=== PATIENT | male | born 1985 | race Caucasian/White ===

== ENCOUNTER 2016-08-27 19:12 | Emergency (ER) | payer MEDICAID ==
[~2016-08-27] VITALS: Ht 182.9 cm; Wt 81.6 kg
[~2016-08-27 19:12] MED LIST: CEPH-37 PO
[2016-08-27 19:40] VITALS: BP 122/75
[2016-08-27 20:16] LABS: Basophils # (auto) 0 uL; Basophils % (auto) 0.5 % (0.0-2.0); Eosinophils # (auto) 0.3 uL; Eosinophils % (auto) 3.4 % (0.0-7.0); Hematocrit 45.2 % (41.0-53.0); Hemoglobin 14.5 g/dL (13.5-17.5); Lymphocytes # (auto) 2.3 uL; Lymphocytes % (auto) 30.2 % (10.0-50.0); Mean Corpuscular Hemoglobin 28.9 pg (28.0-32.0); Mean Corpuscular Volume 90.2 fL (80.0-100.0); Mean Platelet Volume 7.6 fL (7.4-10.4); Monocytes # (auto) 0.6 uL; Monocytes % (auto) 7.4 % (0.0-12.0); Neutrophils # (auto) 4.5 uL; Neutrophils % (auto) 58.5 % (37.0-80.0); Platelet Count (auto) 321 10^3/uL (140-450); Red Cell Distribution Width 13.7 % (11.6-16.0); White Blood Cell 7.7 10^3/uL (4.4-10.8)
[2016-08-27 20:50] LABS: Potassium 3.9 mmol/L (3.5-5.1)
[2016-08-27 21:02] LABS: Albumin 4.2 g/dL (3.4-5.0); BUN/Creatinine Ratio 19.4; Bilirubin, Total 0.3 mg/dL (0.2-1.0); Total Protein 7.7 g/dL (6.4-8.2)
== END 2016-08-28 00:29 | disposition left against medical advice (07) ==
LOC: ER 19:23
DX: R21 Rash and other nonspecific skin eruption (principal); Z53.21 Procedure and treatment not carried out due to patient leaving prior to being seen by health care provider
CPT/HCPCS: 36415; 80053; 85025

== ENCOUNTER 2016-11-02 03:12 | Emergency (ER) | payer MEDICAID ==
[~2016-11-02] VITALS: Ht 182.9 cm; Wt 71.2 kg
[2016-11-02 03:19] VITALS: BP 115/89
== END 2016-11-02 03:50 | disposition home or self-care (01) ==
LOC: ER 03:12
DX: L03.221 Cellulitis of neck (principal); F17.210 Nicotine dependence, cigarettes, uncomplicated; F12.10 Cannabis abuse, uncomplicated; F15.10 Other stimulant abuse, uncomplicated; Z59.0 Homelessness

== ENCOUNTER 2017-04-19 23:56 | Emergency (ER) | payer MEDICAID ==
[~2017-04-19] VITALS: Ht 170.2 cm; Wt 74.8 kg
[2017-04-20 00:02] VITALS: BP 116/73
== END 2017-04-20 01:00 | disposition left against medical advice (07) ==
LOC: ER 23:56 → EDUNIT# 23:56 → EDBD 23:56 → ER 04-20 01:00
DX: F19.10 Other psychoactive substance abuse, uncomplicated (principal); Z53.21 Procedure and treatment not carried out due to patient leaving prior to being seen by health care provider
CPT/HCPCS: 93005

== ENCOUNTER 2019-08-16 10:01 | Emergency (ER) | payer MEDICAID ==
[~2019-08-16] VITALS: Ht 182.9 cm; Wt 83.9 kg
[2019-08-16 10:29] VITALS: BP 129/70
== END 2019-08-16 12:45 | disposition home or self-care (01) ==
LOC: ER 10:01
DX: J02.9 Acute pharyngitis, unspecified (principal); F17.210 Nicotine dependence, cigarettes, uncomplicated

== ENCOUNTER 2021-03-30 01:18 | Emergency (ER) | payer BC, MEDICAID, OTHER ==
[~2021-03-30] VITALS: Ht 180.3 cm; Wt 77.1 kg
[2021-03-30] MEDS ORDERED: LORazepam 0.5 MG TAB PO ONE (04:00)
[2021-03-30 09:18] LABS: Basophils # (auto) 0 10 ^3/uL (0-0.2); Basophils % (auto) 0.5 % (0.0-2.0); Eosinophils # (auto) 0.3 10 ^3/uL (0-0.8); Eosinophils % (auto) 3.5 % (0.0-7.0); Hematocrit 46.4 % (41.0-53.0); Lymphocytes # (auto) 1.8 10 ^3/uL (0.4-5.4); Lymphocytes % (auto) 23.2 % (10.0-50.0); Mean Corpuscular Hgb Conc. 34.5 g/dL (32.0-36.0); Mean Corpuscular Volume 89.8 fL (80.0-100.0); Monocytes # (auto) 0.5 10 ^3/uL (0-1.3); Monocytes % (auto) 6.7 % (0.0-12.0); Neutrophils # (auto) 5.1 10 ^3/uL (1.6-8.6); Neutrophils % (auto) 66.1 % (37.0-80.0); Nucleated Red Blood Cells % 0.3 %; Red Blood Cells 5.17 10^6/uL (4.5-5.90); Red Cell Distribution Width 13.8 % (11.8-14.3); White Blood Cell 7.7 10^3/uL (4.4-10.8)
[2021-03-30 09:23] LABS: Albumin 3.7 g/dL (3.4-5.0); BUN/Creatinine Ratio 15.9; Calcium 9.1 mg/dL (8.5-10.1); Potassium 3.5 mmol/L (3.5-5.1)
[2021-03-30 09:26] LABS: Bilirubin, Total 0.6 mg/dL (0.2-1.0); Total Protein 7.2 g/dL (6.4-8.2)
[2021-03-30 09:44] LABS: Acetaminophen < 2.0 ug/mL (10-30); Salicylate < 1.7 mg/dL (2.8-20.0)
[2021-03-31 09:25] VITALS: BP 120/70
== END 2021-03-31 11:08 | disposition home or self-care (01) ==
LOC: EDBD 01:18 → ER 01:21
DX: F32.9 Major depressive disorder, single episode, unspecified (principal); F41.9 Anxiety disorder, unspecified; F17.210 Nicotine dependence, cigarettes, uncomplicated; F12.10 Cannabis abuse, uncomplicated; F15.10 Other stimulant abuse, uncomplicated; Z59.0 Homelessness
CPT/HCPCS: 36415; 80053; 80320; 80329; 85025

== ENCOUNTER 2021-10-15 00:01 | Emergency (ER) | payer SELFPAY ==
[~2021-10-15] VITALS: Ht 182.9 cm; Wt 79.4 kg
[2021-10-15 02:04] VITALS: BP 116/74
== END 2021-10-15 02:13 | disposition home or self-care (01) ==
LOC: ER 00:01
DX: S06.0X0A Concussion without loss of consciousness, initial encounter (principal); F17.210 Nicotine dependence, cigarettes, uncomplicated; F12.10 Cannabis abuse, uncomplicated; F15.10 Other stimulant abuse, uncomplicated; Y04.8XXA Assault by other bodily force, initial encounter; Y93.89 Activity, other specified; Y92.89 Other specified places as the place of occurrence of the external cause; Y99.8 Other external cause status
CPT/HCPCS: 70450

== ENCOUNTER 2024-05-27 01:01 | Emergency (ER) | payer BC, MEDICAID ==
[~2024-05-27] VITALS: Ht 182.9 cm; Wt 81.5 kg
[2024-05-27 02:19] VITALS: BP 138/81; PULSE 106; RESP 16; TEMP 98.2; O2SAT 96
--- NOTE | 2024-05-27 02:50 | ED.PDOC ---
History of Present Illness(SKN HPI Comments 38 year old male presents to ER with complaints of abscess x 1 week. Patient states he's had an abscess surrounding facial hair of right lower jaw x 1 week with associated yellow purulent drainage to this region x 1 day. He reports 9/10 pain localized to abscess with radiation towards right ear. Denies use of medications for current symptoms. Patient presents to ER, ambulatory on arrival, alert and oriented x4, with steady gait, in no distress. Denies fever, body aches, chills, n/v, headache, trauma, neck pain, shortness of breath or any further symptoms/complaints Chief Complaint: Abscess Time Seen by MD: 01:23 Primary Care Provider: NONE History of Present Illness: Nurses Notes, Medications, Allergies Allergies: Coded Allergies: NO KNOWN ALLERGIES (Unverified , 05/06/16) Home Meds Active Scripts Ibuprofen (Ibuprofen) 800 Mg Tab, 1 TAB PO TID PRN, #30 TAB 0 Refills Prov:TESSIE OLIVER 05/27/24 Clindamycin Hcl (Clindamycin Hcl) 300 Mg Cap, 300 MG PO QID for 7 Days, #28 CAP 0 Refills Prov:TESSIE OLIVER 05/27/24 Cephalexin (Keflex) 500 Mg Cap, 1 CAP PO TID, #30 CAP Prov:LUCI PATTEN MD 05/28/16 Information Source: Patient Mode of Arrival: Ambulatory Tetanus: UTD Past Medical History PAST MEDICAL HISTORY: Denies Surgical History: Hernia Repair Family History Family History: Unknown Social History Smoker: Cigarettes, Greater Than 1 Pack/Day Alcohol: Occasionally Drugs: Marijuana, Methamphetamine Lives In: Home Constitutional: denies: chills, diaphoresis, fatigue, fever, malaise, sweats, weakness, others EENTM: reports: others (As stated in HPI) Respiratory: denies: cough, hemoptysis, orthopnea, SOB at rest, shortness of breath, SOB with excertion, stridor, wheezing, others Cardiovascular: denies: chest pain, dizzy spells, diaphoresis, Dyspnea on exertion, edema, irregular heart beat, left arm pain, lightheadedness, palpitations, PND, syncope, others Gastrointestinal: denies: abdomen distended, abdominal pain, blood streaked bowels, constipated, diarrhea, dysphagia, difficulty swallowing, hematemesis, melena, nausea, poor appetite, poor fluid intake, rectal bleeding, rectal pain, vomiting, others Genitourinary: denies: burning, dysuria, flank pain, frequency, hematuria, incontinence, penile discharge, penile sore, pain, testicle pain, testicle swelling, urgency, others Neurological: denies: dizziness, fainting, headache, left sided numbness, left sided weakness, numbness, paresthesia, pre-existing deficit, right sided numbness, right sided weakness, seizure, speech problems, tingling, tremors, weakness, others Musculoskeletal: denies: back pain, gout, joint pain, joint swelling, muscle pain, muscle stiffness, neck pain, others Integumetry: reports: others (As in HPI) Allergic/Immunocompromised: denies: Difficulty Healing, Frequent Infections, Hives, Itching, others Hematologic/Lymphatic: denies: anemia, blood clots, easy bleeding, easy bruising, swollen glands, others Endocrine: denies: excessive hunger, excessive sweating, excessive thirst, excessive urination, flushing, intolerance to cold, intolerance to heat, unexplained weight gain, unexplained weight loss, others Psychiatric: denies: anxiety, bipolar disorder, depression, hopeless, panic disorder, schizophrenia, sleepless, suicidal, others Physical Exam General Appearance: No Apparent Distress HEENT: Normal ENT Inspection, PERRL/EOMI, Pharynx Normal, TMs Normal Neck: Full Range of Motion, Other (Right cervical lymphadenopathy) Respiratory: Chest Non-Tender, Lungs Clear, No Accessory Muscle Use, No Respiratory Distress, Normal Breath Sounds Cardiovascular: No Murmur, No Gallop, Regular Rate/Rhythm Breast Exam: Deferred Gastrointestinal: NOT DONE Genitalia: Deferred Pelvic: Deferred Rectal: Deferred Extremities: Normal capillary refill, Normal range of motion Neurologic: Alert, med peds II-XII nml as Tested, No Motor Deficits, Normal Affect, Normal Mood, No Sensory Deficits Cerebellar Function: Normal Reflexes: Normal Skin: Dry, Warm Lymphatic: Other (Right cervical lympadenopathy) Was a procedure done? Was a procedure done?: Yes Sedation Sedation?: No Incision and Drainage Incision and Drainage: Abscess Location Right lower mandible Anesthetic: Lidocaine (1% without epi) Preparation: Betadine Incision and Wound: Pus, Blood, Amount (Area surrounding abscess was shaved using a razor. 10 blade scalpel was used to make the incision and hemostat was used to break up the loculations of abscess. Large amount of purulent driange removed. Patient tolerated procedure well without any complication), Irrigated, Packed Informed consent obtained: Yes Risks/benefits/alt described: Yes Images 1 - 4 cm x 3 cm abscess surrounding facial hair to right lower mandible. No drainage/red streaking noted Differential Diagnosis (INTG) Differential Diagnosis: Abrasion Differential Diagnosis: Puncture Wound, Retained Foreign Body, Other (mass) X-Ray, Labs, Meds, VS Vital Signs Date Time Temp Pulse Resp B/P (MAP) Pulse Ox O2 Delivery O2 Flow Rate FiO2 05/27/24 02:19 98.2 106 16 138/81 (100) 96 98.2 05/27/24 02:19 106 16 96 Room Air 05/27/24 01:15 98.2 106 16 138/81 (100) 96 Current Medications Medications (Trade) Dose Ordered Sig/Phong Route Start Time Stop Time Status Last Admin Clindamycin Phosphate 50 ml @ 50 mls/hr ONCE ONCE IV 05/27/24 02:45 05/27/24 03:44 DC 05/27/24 04:55 Ceftriaxone Sodium 50 ml @ 100 mls/hr ONCE ONCE IV 05/27/24 02:45 05/27/24 03:14 DC 05/27/24 04:40 Hep-Lock IV ordered Clindamycin 900 mg IV ordered Rocephin 1 g IV ordered Toradol 30 mg IV ordered Wound care was discussed and advised Advised to f/u in 2 days for wound check removal of packing Patient neurovascularly intact, in no distress and reported improvement in symptoms prior to discharge Methamphetamine and cannabis cessation discussed and advised Advised to follow up with PCP in 1-2 days Patient verbalized understanding and agreeable with current plan of care Advised to return to ER immediately if symptoms worsen Time of 1ST Reevaluation: 02:42 Reevaluation 1ST: N/A Patient Education/Counseling: Diagnosis, Treatment, Prognosis, Need For Follow Up Family Education/Counseling: No Family Present Departure 1 Departure Time of Disposition: 04:22 Impression: Primary Impression: Abscess of mandible Disposition: 01 HOME / SELF CARE / HOMELESS Condition: Stable e-Prescriptions Ibuprofen (Ibuprofen) 800 Mg Tab 1 TAB PO TID PRN, #30 TAB 0 Refills Prov: TESSIE OLIVER 05/27/24 Clindamycin Hcl (Clindamycin Hcl) 300 Mg Cap 300 MG PO QID for 7 Days, #28 CAP 0 Refills Prov: TESSIE OLIVER 05/27/24 Discharged With: Self Critical Care Note Critical Care Time?: No Stability Stability form required: No Heart Score Heart Score: Heart Score Response (Comments) Value History N/A 0 EKG N/A 0 Age N/A 0 Risk Factors N/A 0 Troponin N/A 0 Total 0 TESSIE OLIVER May 27, 2024 02:50
[2024-05-27] MEDS ORDERED: IBUP-1456 PO (04:24)
[2024-05-27] MEDS ORDERED: CLIN1CAP70 PO (04:24)
[2024-05-27] MEDS: KETOROLAC TROMETH 30 MG/ML 1ML VIAL IV ONE (04:30)
[2024-05-27] MEDS: cefTRIAXone 1GM/50ML D5W 50 ML IV ONE (04:40)
[2024-05-27] MEDS: CLINDAMYCIN 900MG IV 50 ML IV ONE (04:55)
== END 2024-05-27 05:40 | disposition home or self-care (01) ==
LOC: ER 01:01
DX: H60.01 Abscess of right external ear (principal); M27.2 Inflammatory conditions of jaws; F17.210 Nicotine dependence, cigarettes, uncomplicated; Z79.899 Other long term (current) drug therapy; Z98.890 Other specified postprocedural states
CPT/HCPCS: 10061; 96365; 96368; 99284; J0696; J3490; J1885

== ENCOUNTER 2024-05-29 19:18 | Emergency (ER) | payer SELFPAY ==
[~2024-05-29 19:18] MED LIST changes: +CLIN1CAP70 PO; +IBUP-1456 PO
== END 2024-05-29 20:04 | disposition left against medical advice (07) ==
LOC: ER 19:18
DX: T14.8XXA Other injury of unspecified body region, initial encounter (principal); Z53.21 Procedure and treatment not carried out due to patient leaving prior to being seen by health care provider; X58.XXXA Exposure to other specified factors, initial encounter; Y93.89 Activity, other specified; Y92.89 Other specified places as the place of occurrence of the external cause; Y99.8 Other external cause status

== ENCOUNTER 2024-05-30 02:37 | Emergency (ER) | payer MEDICAID ==
[~2024-05-30] VITALS: Ht 182.9 cm; Wt 83.0 kg
[2024-05-30 02:55] VITALS: BP 133/86; PULSE 98; RESP 18; TEMP 98.7; O2SAT 98
--- NOTE | 2024-05-30 02:58 | ED.PDOC ---
History of Present Illness HPI Comments 38-year-old male who came to ER for wound check. Patient does have history of substance abuse. Patient was seen here 3 days ago abscess of the mandible, and underwent incision and drainage, tolerated procedure well. Patient is unable to fill up his prescription start antibiotics due to financial constraints. Patient coming in for wound check. Chief Complaint: Wound Check Time Seen by MD: 02:58 Primary Care Provider: NONE Reviewed Notes: Nurses Notes Allergies: Coded Allergies: NO KNOWN ALLERGIES (Unverified , 05/06/16) Home Meds Active Scripts Ibuprofen (Ibuprofen) 800 Mg Tab, 1 TAB PO TID PRN, #30 TAB 0 Refills Prov:TESSIE OLIVER 05/27/24 Clindamycin Hcl (Clindamycin Hcl) 300 Mg Cap, 300 MG PO QID for 7 Days, #28 CAP 0 Refills Prov:TESSIE OLIVER 05/27/24 Cephalexin (Keflex) 500 Mg Cap, 1 CAP PO TID, #30 CAP Prov:LUCI PATTEN MD 05/28/16 Information Source: Patient Mode of Arrival: Ambulatory Severity: Moderate Timing: Days Duration: Since onset Past Medical History PAST MEDICAL HISTORY: Denies Surgical History: Hernia Repair Family History Family History: Reviewed,noncontributory to illness Social History Smoker: Cigarettes, Greater Than 1 Pack/Day Alcohol: Occasionally Drugs: Marijuana, Methamphetamine Lives In: Homeless Constitutional: denies: chills, diaphoresis, fatigue, fever, malaise, sweats, weakness, others EENTM: denies: blurred vision, double vision, ear bleeding, ear discharge, ear drainage, ear pain, ear ringing, eye pain, eye redness, hearing loss, mouth pain, mouth swelling, nasal discharge, nose bleeding, nose congestion, nose pain, photophobia, tearing, throat pain, throat swelling, voice changes, others Respiratory: denies: cough, hemoptysis, orthopnea, SOB at rest, shortness of breath, SOB with excertion, stridor, wheezing, others Cardiovascular: denies: chest pain, dizzy spells, diaphoresis, Dyspnea on exertion, edema, irregular heart beat, left arm pain, lightheadedness, palpitations, PND, syncope, others Gastrointestinal: denies: abdomen distended, abdominal pain, blood streaked bowels, constipated, diarrhea, dysphagia, difficulty swallowing, hematemesis, melena, nausea, poor appetite, poor fluid intake, rectal bleeding, rectal pain, vomiting, others Genitourinary: denies: burning, dysuria, flank pain, frequency, hematuria, incontinence, penile discharge, penile sore, pain, testicle pain, testicle sw elling, urgency, others Neurological: denies: dizziness, fainting, headache, left sided numbness, left sided weakness, numbness, paresthesia, pre-existing deficit, right sided numbness, right sided weakness, seizure, speech problems, tingling, tremors, weakness, others Musculoskeletal: denies: back pain, gout, joint pain, joint swelling, muscle pain, muscle stiffness, neck pain, others Integumetry: reports: wounds (Abscess of the mandible); denies: bruises, change in color, change in hair/nails, dryness, laceration, lesions, lumps, rash, others Allergic/Immunocompromised: denies: Difficulty Healing, Frequent Infections, Hives, Itching, others Hematologic/Lymphatic: denies: anemia, blood clots, easy bleeding, easy bruising, swollen glands, others Endocrine: denies: excessive hunger, excessive sweating, excessive thirst, excessive urination, flushing, intolerance to cold, intolerance to heat, unexplained weight gain, unexplained weight loss, others Psychiatric: denies: anxiety, bipolar disorder, depression, hopeless, panic disorder, schizophrenia, sleepless, suicidal, others Physical Exam General Appearance: No Apparent Distress, Normal HEENT: Normal ENT Inspection, Pharynx Normal, TMs Normal Neck: Full Range of Motion, Non-Tender, Normal, Normal Inspection Respiratory: Chest Non-Tender, Lungs Clear, No Accessory Muscle Use, No Respiratory Distress, Normal Breath Sounds Cardiovascular: No Edema, No JVD, No Murmur, No Gallop, Normal Peripheral Pulses, Regular Rate/Rhythm Breast Exam: Deferred Gastrointestinal: No Organomegaly, Non Tender, No Pulsatile Mass, Normal Bowel Sounds, Soft Genitalia: Deferred Pelvic: Deferred Rectal: Deferred Extremities: No calf tenderness, Normal capillary refill, Normal inspection, Normal range of motion, Non-tender, No pedal edema Musculoskeletal : Apperance: Normal Neurologic: Alert, 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 Was a procedure done?: No Differential Dx Considerations may include: Abscess, cellulitis, substance abuse, homeless X-Ray, Labs, Meds, VS Vital Signs Date Time Temp Pulse Resp B/P (MAP) Pulse Ox O2 Delivery O2 Flow Rate FiO2 05/30/24 02:55 98.7 98 18 133/86 (102) 98 98.7 05/30/24 02:49 98.5 101 18 134/95 (108) 99 Time of 1ST Reevaluation: 02:56 Reevaluation 1ST: Unchanged Patient Education/Counseling: Diagnosis, Treatment Family Education/Counseling: No Family Present Departure 1 Departure Time of Disposition: 03:07 (Removed patient's packing and we will discharge patient home.) Impression: Primary Impression: Abscess of mandible Additional Impression: Visit for wound check Disposition: 01 HOME / SELF CARE / HOMELESS Condition: Stable Additional Instructions: For pain you can take the followinam: Ibuprofen 400mg with food Noon: Acetaminophen 1000mg 4pm: Ibuprofen 400mg with food 8pm: Acetaminophen 1000mg You should continue to take your antibiotics. If your symptoms worsen or you have any other concerns then please return to the ER. Discharged With: Self Critical Care Note Critical Care Time?: No Stability Stability form required: No Heart Score Heart Score: Heart Score Response (Comments) Value History N/A 0 EKG N/A 0 Age N/A 0 Risk Factors N/A 0 Troponin N/A 0 Total 0 I personally scribed for NAZIA AVALOS MD ([email or web address]) on 05/30/24 at 02:58. Electronically submitted by Sravan Shen ([email or web address]). NAZIA AVALOS MD May 30, 2024 02:58
[2024-05-30] MEDS: SULFAMETHOX W/TRIMETH(800/160MG) DS TAB PO ONE (03:10)
== END 2024-05-30 03:30 | disposition home or self-care (01) ==
LOC: ER 02:37
DX: M27.2 Inflammatory conditions of jaws (principal); F17.210 Nicotine dependence, cigarettes, uncomplicated; F12.90 Cannabis use, unspecified, uncomplicated; F15.90 Other stimulant use, unspecified, uncomplicated; Z48.01 Encounter for change or removal of surgical wound dressing; Z79.899 Other long term (current) drug therapy; Z98.890 Other specified postprocedural states; Z59.00 Homelessness unspecified